=== PATIENT | female | born 1965 ===

== ENCOUNTER 2016-11-27 22:30 | Observation (INO) | payer SELFPAY ==
[2016-11-27 22:30] VITALS: BMI 25.0
[2016-11-27 23:13] VITALS: BP 129/78; PULSE 70; RESP 18; TEMP 98; O2SAT 100
--- NOTE | 2016-11-28 00:04 | ED PDOC ---
HPI: Female Pain Time Seen by Provider: 11/27/16 23:29 Chief Complaint (Nursing): Female Genitourinary Chief Complaint (Provider): R flank pain History Per: Patient Additional Complaint(s): Patient having right back/flank pain for 4 days. No CVA tenderness, no urinary issues. Past Medical History Reviewed: Nursing Documentation, Vital Signs Vital Signs: Last Vital Signs Temp 98 F 11/27/16 23:10 Pulse 70 11/27/16 23:10 Resp 18 11/27/16 23:10 BP 129/78 11/27/16 23:10 Pulse Ox 100 11/27/16 23:10 - Medical History PMH: No Chronic Diseases - Surgical History Surgical History: Cholecystectomy - Family History Family History: States: No Known Family Hx - Living Arrangements Living Arrangements: With Family - Social History Current smoker - smoking cessation education provided: No Alcohol: Social Drugs: Denies - Immunization History Hx Tetanus Toxoid Vaccination: No Hx Influenza Vaccination: No Hx Pneumococcal Vaccination: No - Home Medications Home Medications: Ambulatory Orders Medication Instructions Recorded Azithromycin [Zithromax] 250 mg PO DAILY #4 tab 09/05/16 Benzonatate [Tessalon Perles] 100 mg PO BID PRN #15 sgl 09/05/16 Naproxen [Naprosyn Tab] 375 mg PO BID PRN #15 tab 09/05/16 Cyclobenzaprine [Cyclobenzaprine 10 mg PO TID #20 tab 11/28/16 HCl] Ibuprofen [Motrin] 600 mg PO Q6 #20 tab 11/28/16 - Allergies Allergies/Adverse Reactions: Allergies Allergy/AdvReac Type Severity Reaction Status Date / Time No Known Allergies Allergy Verified 09/05/16 11:17 Review of Systems ROS Statement: Except As Marked, All Systems Reviewed And Found Negative Musculoskeletal: Positive for: Back Pain Physical Exam - Reviewed Nursing Documentation Reviewed: Yes Vital Signs Reviewed: Yes - Physical Exam Appears: Positive for: Well, Non-toxic, No Acute Distress Head Exam: Positive for: ATRAUMATIC, NORMAL INSPECTION, NORMOCEPHALIC Skin: Positive for: Normal Color, Warm, DRY Eye Exam: Positive for: EOMI, Normal appearance, PERRL ENT: Positive for: Normal ENT Inspection Neck: Positive for: Normal, Painless ROM Cardiovascular/Chest: Positive for: Regular Rate, Rhythm Respiratory: Positive for: CNT, Normal Breath Sounds Gastrointestinal/Abdominal: Positive for: Normal Exam, Bowel Sounds, Soft Back: Positive for: Normal Inspection, R CVA Tenderness Extremity: Positive for: Normal ROM Neurologic/Psych: Positive for: Alert, Oriented - Laboratory Results Result Diagrams: 11/28/16 00:36 11/28/16 00:36 - ECG O2 Sat by Pulse Oximetry: 100 Medical Decision Making Medical Decision Making: IV access established and treatment initiated with IV Toradol and Morphine. Pt reports feeling greatly improved on re-eval Labs resulted and reviewed with Pt who demonstrated full understanding Pt without CVA tenderness on re-eval, advised pain likely muskuloskeletal. Pt stable for discharge at this time Disposition - Clinical Impression Clinical Impression: Flank pain - Patient ED Disposition Is Patient to be Admitted: No - Disposition Disposition: Routine/Home Disposition Time: 02:44 Condition: STABLE - POA Present On Arrival: None
[2016-11-28 00:59] LABS: BASO % 0.4 % (0.0-2.0); EOS # 0.2 K/uL (0.0-0.7); EOS % 2.4 % (0.0-4.0); HEMOGLOBIN 12.4 g/dL (12.0-16.0); LYMPH # 2.5 K/uL (1.0-4.3); LYMPH % 29.3 % (20.0-40.0); MEAN CELL VOLUME 90.4 fl (81.0-99.0); MEAN CORPUSCULAR HEMOGLOBIN 30.2 pg (27.0-31.0); MEAN CORPUSCULAR HGB CONC 33.4 g/dL (33.0-37.0); MEAN PLATELET VOLUME 9.2 fl (7.2-11.7); MONO # 0.6 K/uL (0.0-0.8); MONO % 7.5 % (0.0-10.0); NEUT # 5.2 K/uL (1.8-7.0); NEUT % 60.4 % (50.0-75.0); NRBC % 0.1 % (0.0-0.0); RBC 4.11 Mil/uL (3.80-5.20); RED CELL DISTRIBUTION WIDTH 13.6 % (11.5-14.5); WHITE BLOOD COUNT 8.5 K/uL (4.8-10.8)
[2016-11-28 01:15] LABS: ALB/GLOB RATIO 1.3 (1.0-2.1); ALBUMIN 3.7 g/dL (3.5-5.0); ALT/SGPT 36 U/L (9-52); AMYLASE 48 U/L (30-110); AST/SGOT 18 U/L (14-36); BLOOD UREA NITROGEN 11 mg/dl (7-17); GFR AFRICAN-AMERICAN > 60; GFR NON-AFRICAN AMERICAN > 60; LIPASE 46 U/L (23-300)
[2016-11-28 01:16] LABS: SQUAMOUS EPITHIAL 7 /hpf (0-5); URINE BACTERIA RARE (<OCC); URINE BILIRUBIN NEGATIVE (NEGATIVE); URINE BLOOD NEGATIVE (NEGATIVE); URINE CLARITY SLIGHTY-CLOUDY (Clear); URINE COLOR YELLOW (YELLOW); URINE GLUCOSE (UA) NEG (Normal); URINE LEUKOCYTE ESTERASE NEG Leu/uL (Negative); URINE NITRATE NEGATIVE (NEGATIVE); URINE PROTEIN NEGATIVE (NEGATIVE); URINE UROBILINOGEN 0.2-1.0 mg/dL (0.2-1.0)
== END 2016-11-28 02:51 | disposition home or self-care (01) ==
LOC: H.ER 22:30 → H.EROBSV 23:15
PROVIDERS: ADMIT Emergency Medicine; ATTEND Emergency Medicine
DX: R10.9 Unspecified abdominal pain (principal)
CPT/HCPCS: 80053; 81003; 82150; 83690; 85025; 96374; 96375; 99282; G0378; J1885; J2270

== ENCOUNTER 2018-01-05 19:51 | Emergency (ER) | payer OTHER ==
[2018-01-05 19:51] VITALS: BMI 25.0
[2018-01-05 20:07] VITALS: BP 125/79; PULSE 83; RESP 18; TEMP 98.2; O2SAT 98
--- NOTE | 2018-01-05 22:02 | ED PDOC ---
HPI: Dental Pain/Injury Time Seen by Provider: 01/05/18 21:29 Chief Complaint (Nursing): Dental Pain Chief Complaint (Provider): toothache History Per: Patient History/Exam Limitations: no limitations Onset/Duration Of Symptoms: Days (2) Current Symptoms Are (Timing): Still Present Dental: 1 - pain Additional Complaint(s): 52 y/o female presents for evaluation of left lower toothache x 2 days. Patient states she cracked that tooth a few months ago, and noticed the pain to start while eating chicken and rice 2 days ago. Patient states pain radiates to left jaw area. Denies fever, ear pain, throat pain, difficulty speaking/ swallowing. Taking Advil with little relief. Past Medical History Reviewed: Historical Data, Nursing Documentation, Vital Signs Vital Signs: Last Vital Signs Temp 98.2 F 01/05/18 20:04 Pulse 83 01/05/18 20:04 Resp 18 01/05/18 20:04 BP 125/79 01/05/18 20:04 Pulse Ox 98 01/05/18 20:04 - Medical History PMH: No Chronic Diseases - Surgical History Surgical History: Cholecystectomy - Family History Family History: States: Unknown Family Hx - Immunization History Hx Tetanus Toxoid Vaccination: No Hx Influenza Vaccination: No Hx Pneumococcal Vaccination: No - Home Medications Home Medications: Ambulatory Orders Medication Instructions Recorded Ibuprofen [Motrin] 1 tab PO Q8 PRN #30 tab 05/01/17 Naproxen [Naprosyn] 500 mg PO BID #20 tab 05/03/17 diaZEpam [Valium] 5 mg PO TID #21 tab 05/03/17 Amoxicillin 500 mg PO Q8 #20 tablet 01/05/18 traMADol [Ultram] 50 mg PO Q8 PRN #10 tab 01/05/18 - Allergies Allergies/Adverse Reactions: Allergies Allergy/AdvReac Type Severity Reaction Status Date / Time No Known Allergies Allergy Verified 05/03/17 16:20 Review of Systems ROS Statement: Except As Marked, All Systems Reviewed And Found Negative ENT: Positive for: Mouth Pain (left lower tooth) Physical Exam - Reviewed Nursing Documentation Reviewed: Yes Vital Signs Reviewed: Yes - Physical Exam Appears: Positive for: Well, Non-toxic, No Acute Distress Head Exam: Positive for: ATRAUMATIC, NORMAL INSPECTION, NORMOCEPHALIC Skin: Positive for: Normal Color Eye Exam: Positive for: Normal appearance ENT: Positive for: Other (multiple dental caries, gingival recession. left lower second premolar cracked, tender to touch. + surrounding gingival tenderness without abscess noted. No facial edema/erythema. Airway patent) Cardiovascular/Chest: Positive for: Regular Rate, Rhythm Respiratory: Positive for: Normal Breath Sounds Gastrointestinal/Abdominal: Positive for: Normal Exam Back: Positive for: Normal Inspection Extremity: Positive for: Normal ROM Lymphatic: Positive for: Normal Exam Neurologic/Psych: Positive for: Alert, Oriented - ECG O2 Sat by Pulse Oximetry: 98 - Progress ED Course And Treament: Patient educated on findings, discharged with rx Amoxicillin, Tramadol (doses given in ED) Advised dental follow up. Return precautions given Disposition - Clinical Impression Clinical Impression: Toothache - Patient ED Disposition Is Patient to be Admitted: No Counseled Patient/Family Regarding: Diagnosis, Need For Followup, Rx Given - Disposition Disposition: Routine/Home Disposition Time: 22:05 Condition: IMPROVED Prescriptions: Amoxicillin 500 mg PO Q8 #20 tablet traMADol [Ultram] 50 mg PO Q8 PRN #10 tab PRN Reason: Pain, Severe (8-10) Instructions: Dental Pain
== END 2018-01-05 22:43 | disposition home or self-care (01) ==
LOC: H.ER 19:51
DX: K08.89 Other specified disorders of teeth and supporting structures (principal)